=== PATIENT | male | born 1955 | race African-American/Black ===

== ENCOUNTER 2018-02-01 16:33 | Emergency (ER) | payer OTHER ==
[~2018-02-01] VITALS: Ht 198.1 cm; Wt 85.7 kg
[2018-02-01] MEDS ORDERED: METFORMIN HCL500 MG PO (16:40)
[2018-02-01] MEDS ORDERED: LISINOPRIL5 MG PO (16:41)
[2018-02-01] MEDS ORDERED: LIPITOR10 MG PO (16:41)
[2018-02-01 17:40] LABS: INTER. NORMALIZED RATIO 1.2
[2018-02-01 17:43] LABS: PTT 31.8 SEC (25-37)
[2018-02-01 17:47] LABS: BASOPHIL (%) 0.1 % (0-1); EOSINOPHIL (%) 0.7 % (0-5); EOSINOPHIL COUNT 0.1 K/uL (0-0.3); HEMATOCRIT 40.6 % (38.0-50.0); HEMOGLOBIN 13.9 G/DL (12.5-16.6); IMMATURE GRANULOCYTE (%) 0.4 % (0.0-0.7); LYMPHOCYTE (%) 9.7 % (15-42); LYMPHOCYTE COUNT 0.8 K/uL (1.0-2.8); MCH 27.7 PG (29.0-34.0); MCHC 34.2 G/DL (30.0-36.0); MCV 80.9 FL (86-99); MONOCYTE (%) 15.9 % (3-12); MONOCYTE COUNT 1.3 K/uL (0-0.8); NEUTROPHIL (%) 73.2 % (45-76); NEUTROPHIL COUNT 6.1 K/uL (1.8-6.4); PLATELET COUNT 195 K/uL (156-360); RBC DIS.WIDTH-SD 41.3 % (39-53); RED BLOOD COUNT 5.02 M/uL (4.00-5.50); WHITE BLOOD COUNT 8.3 K/uL (4.1-10.2)
[2018-02-01 17:51] LABS: ALBUMIN 3.7 g/dL (3.2-4.8); CHLORIDE 102 mEq/L (99-109); POTASSIUM 3.8 mEq/L (3.7-5.4); SODIUM 136 mEq/L (136-147)
[2018-02-01 17:53] LABS: GLUCOSE 164 mg/dL (70-99)
[2018-02-01 17:54] LABS: TOTAL PROTEIN 6.8 g/dL (6.4-8.3)
[2018-02-01 17:57] LABS: ALKALINE PHOSPHATASE 127 IU/L (3-129); CREATININE 1.5 mg/dL (0.6-1.3); GFR ESTIMATE (CALCULATED) > 59 mL/min/ (58.99-99999)
[2018-02-01 17:58] LABS: UREA NITROGEN (BUN) 15 mg/dL (9-23)
[2018-02-01 17:59] LABS: AST (GOT) 22 IU/L (2-34)
[2018-02-01 18:00] LABS: ALT (GPT) 17 IU/L (3-49); LIPASE 8 U/L (1.0-51.0)
[2018-02-01 18:01] LABS: TROP-I INTERPRETATION NEGATIVE; TROPONIN-I < 0.01 ng/mL (0.0-0.30)
[2018-02-01 19:24] LABS: APPEARANCE SL.HAZY ((CLEAR)); BILIRUBIN NEGATIVE; BLOOD MODERATE; COLOR YELLOW ((YELLOW)); GLUCOSE (STRIP) NEGATIVE; KETONES NEGATIVE; LEUKOCYTES TRACE; NITRITE NEGATIVE; PROTEIN (STRIP) 100; SPECIFIC GRAVITY 1.026 (1.000-1.030)
[2018-02-01 20:12] LABS: BACTERIA RARE /HPF; CALCIUM OXALATE CRYSTALS 3+ /HPF; EPITHELIAL CELLS RARE /HPF; HYALINE CASTS 0-5 /LPF; MUCUS TRACE /LPF; UCUL ADDED? YES; WHITE BLOOD CELLS 40-50 /HPF (0-5)
[2018-02-01] MEDS ORDERED: LEVAQUIN750 MG PO (21:13)
[2018-02-01 21:29] VITALS: BP 146/83
== END 2018-02-01 21:31 | disposition home or self-care (01) ==
LOC: EME 16:33
PROVIDERS: Emergency Medicine
DX: N39.0 Urinary tract infection, site not specified (principal); E11.9 Type 2 diabetes mellitus without complications; E78.5 Hyperlipidemia, unspecified; I10 Essential (primary) hypertension; Z79.84 Long term (current) use of oral hypoglycemic drugs
CPT/HCPCS: 80053; 81003; 83605; 83690; 84484; 85025; 85610; 85730; 87040; 87086 GA; 87502; 93005; 99281; 99285; J0696